=== PATIENT | female | born 1995 | race Caucasian/White ===

== ENCOUNTER 2021-10-05 20:48 | Inpatient (IN) ==
[2021-10-05] MEDS ORDERED: LACTATED RINGERS 250 ML IV ONE (20:59)
[2021-10-05] MEDS ORDERED: TRANEXAMIC ACID 1,000 MG in SODIUM CHLORIDE 0.9% 100 ML IV PRN (20:59)
[2021-10-05] MEDS ORDERED: miSOPROStoL 200 MCG TABLET RECTAL PRN (20:59)
[2021-10-05] MEDS ORDERED: MEPERIDINE 25 MG/1 ML VIAL IV PRN (20:59)
[2021-10-05] MEDS ORDERED: CARBOPROST TROMETHAMINE 250 MCG/ML AMP IM PRN (20:59)
[2021-10-05] MEDS ORDERED: OXYTOCIN/LR 20 UNIT/1,000 ML BAG IV ONE (20:59)
[2021-10-05] MEDS ORDERED: BUTORPHANOL 2 MG/ML VIAL IV PRN (20:59)
[2021-10-05] MEDS ORDERED: ACETAMINOPHEN 325 MG TABLET PO PRN (20:59)
[2021-10-05] MEDS ORDERED: FAMOTIDINE 20 MG TABLET PO PRN (20:59)
[2021-10-05] MEDS ORDERED: BUTORPHANOL 1 MG/ML VIAL IV PRN (20:59)
[2021-10-05] MEDS ORDERED: METHYLERGONOVINE 0.2 MG/1 ML AMP IM PRN (20:59)
[2021-10-05] MEDS ORDERED: MEPERIDINE 50 MG/1 ML VIAL IV PRN (21:06)
[2021-10-05 21:30] LABS: Basophils % 0.3 % (0.0-0.8); Eosinophils # 0.1 10*3/uL (0.0-0.87); Eosinophils % 0.5 % (0.00-10.9); Hematocrit 33.5 VOL% (35.7-47.0); Hemoglobin 11.6 GM/DL (12.0-16.0); Immature Granulocytes % 0.7 %; Immature Granulocytes Absolute 0.08 #; Lymphocytes # 2.3 10*3/uL (1.4-4.0); Lymphocytes % 20.5 % (21.3-54.2); Mean Corpuscular HGB Conc 34.6 GM/DL (32-36); Mean Corpuscular Volume 88.2 FL (87-102); Mean Platelet Volume 9.9 FL (9.6-12.0); Monocytes # 0.8 10*3/uL (0.11-0.8); Monocytes % 7.5 % (1.7-12.7); Neutrophils % 70.5 % (38.7-73.9); Platelet Count 278 T/CUMM (130-400); Red Cell Distribution Width 14.2 % (9.3-17.3); White Blood Count 11.2 T/CUMM (4-12)
[2021-10-05 21:48] LABS: Alanine Aminotransferase 15 U/L (13-56); Albumin 2.9 G/DL (3.4-5.0); Alkaline Phosphatase 145 U/L (45-117); Aspartate Amino Transferase 12 U/L (0-37); Bilirubin,Total < 0.39 MG/DL (0.20-1.00); Blood Urea Nitrogen 6 MG/DL (7-18); Calcium 8.7 MG/DL (8.5-10.1); Carbon Dioxide 22 MMOL/L (21-32); Chloride 107 MMOL/L (98-107); Estimated Glom Filtration Rate 138 ML/MIN; Glucose 106 MG/DL (74-106); Osmolality,Calculated 270.8 MOS/KG (273-304); Potassium 3.7 MMOL/L (3.5-5.1); Sodium 137 MMOL/L (136-145); Total Protein 6.8 G/DL (6.4-8.2)
[2021-10-06] MEDS: LACTATED RINGERS 1,000 ML IV SCH ×3 (00:11→10:02)
[2021-10-06] MEDS: ONDANSETRON 4 MG/2 ML VIAL IV PRN ×2 (07:47→13:14)
[2021-10-06] MEDS ORDERED: diphenhydrAMINE 50 MG/1 ML VIAL IV PRN (07:58)
[2021-10-06] MEDS ORDERED: hydrOXYzine HCL 25 MG/1 ML VIAL IM PRN (07:58)
[2021-10-06] MEDS ORDERED: CITRIC ACID/SODIUM CITRATE 30 ML UDCUP PO ONE (07:58)
[2021-10-06] MEDS ORDERED: ePHEDrine 50 MG/ML VIAL IV PRN (07:58)
[2021-10-06] MEDS ORDERED: NALOXONE 0.4 MG/ML VIAL IV PRN (07:58)
[2021-10-06] MEDS ORDERED: PROMETHAZINE 25 MG/1 ML VIAL IM PRN (07:58)
[2021-10-06] MEDS ORDERED: FAMOTIDINE 20 MG/2 ML VIAL IV ONE (07:58)
[2021-10-06] MEDS ORDERED: fentaNYL 2 MCG/ROPIV 0.2% EPID 100 ML EPIDURAL SCH (08:00)
[2021-10-06] MEDS ORDERED: OXYTOCIN/LR 20 UNIT/1,000 ML BAG IV SCH (08:00)
[2021-10-06 10:56] LABS: Mucus,Urine Occasional /LPF (Occasional); RBC,Urine 1 /HPF (0-4); Squamous Epithelial Cell,Urine Occasional /HPF (0-10)
[2021-10-06 11:15] LABS: Bilirubin,Urine Negative (Negative); Glucose,Urine (UA) Negative (Negative); Ketones,Urine Negative (Negative); Nitrite,Urine Negative (Negative); Protein,Urine Negative (Negative); Urine Appearance Clear (Clear); Urine Color Yellow (Yellow); Urine Specific Gravity 1.015 (1.001-1.035); Urine pH 7.5 (4.5-8.0)
[2021-10-06 11:16] LABS: Blood, Urine Negative (Negative); Urine Urobilinogen 0.2 eU/dL (<2.0)
[2021-10-06] MEDS ORDERED: CARBOPROST TROMETHAMINE 250 MCG/ML AMP IM ONE (12:24)
[2021-10-06] MEDS ORDERED: METHYLERGONOVINE 0.2 MG/1 ML AMP ONE (12:24)
[2021-10-06] MEDS ORDERED: TRANEXAMIC ACID 1,000 MG/10 ML VIAL ONE (12:24)
[2021-10-06] MEDS ORDERED: miSOPROStoL 200 MCG TABLET ONE (12:24)
[2021-10-06 14:34] LABS: Cord Arterial Blood HCO3 19.6 MMOL/L
[2021-10-06 14:36] LABS: Cord Venous Blood HCO3 22.8 MMOL/L; Cord Venous Blood PCO2 39.9 MMHG; Cord Venous Blood PO2 29.1
[2021-10-06] MEDS ORDERED: ONDANSETRON 4 MG/2 ML VIAL IV PRN ×2 (16:46→17:36)
[2021-10-06] MEDS: IBUPROFEN 800 MG TABLET PO PRN (16:56)
[2021-10-06] MEDS ORDERED: LANOLIN 50% CREAM 0.3 OZ TUBE TOP PRN (17:36)
[2021-10-06] MEDS ORDERED: RHO(D) IMMUNE GLOBULIN 300 MCG SYRINGE IM ONE (17:36)
[2021-10-06] MEDS ORDERED: IBUPROFEN 800 MG TABLET PO PRN (17:36)
[2021-10-06] MEDS ORDERED: oxyCODONE/ACETAMINOPHEN 5-325 MG TABLET PO PRN ×2 (17:36)
[2021-10-06] MEDS ORDERED: OXYTOCIN/LR 20 UNIT/1,000 ML BAG IV ONE (17:36)
[2021-10-06] MEDS ORDERED: HYDROCORTISONE 2.5% RECTAL CREAM 30 GM TUBE TOP PRN (17:36)
[2021-10-06] MEDS ORDERED: WITCH HAZEL PADS 100/JAR TOP PRN ×2 (17:36→17:51)
[2021-10-06] MEDS ORDERED: ACETAMINOPHEN 325 MG TABLET PO PRN (17:36)
[2021-10-06] MEDS ORDERED: BENZOCAINE 20%/MENTHOL 0.5% SPRAY 56 GM CAN TOP PRN ×2 (17:36→17:51)
[2021-10-06] MEDS ORDERED: BISACODYL 10 MG SUPP RECTAL PRN (17:36)
[2021-10-06] MEDS ORDERED: DIPH/TET/ACEL PERT BOOSTER VACCINE 0.5 ML VIAL IM ONE (17:36)
[2021-10-06] MEDS ORDERED: MEASLES/MUMPS/RUBELLA VACCINE 0.5 ML VIAL SUBCUT ONE (17:36)
[2021-10-06 20:16] LABS: Hematocrit 28.1 VOL% (35.7-47.0); Hemoglobin 9.6 GM/DL (12.0-16.0)
[2021-10-06] MEDS ORDERED: KETOROLAC 30 MG/1 ML VIAL IV PRN (23:35)
[2021-10-06] MEDS: DOCUSATE SODIUM 100 MG CAPSULE PO SCH (23:45)
[2021-10-07] MEDS: IBUPROFEN 800 MG TABLET PO PRN ×3 (03:50→20:58)
[2021-10-07 06:06] LABS: Basophils % 0.3 % (0.0-0.8); Eosinophils # 0.1 10*3/uL (0.0-0.87); Eosinophils % 0.5 % (0.00-10.9); Hematocrit 28.2 VOL% (35.7-47.0); Hemoglobin 9.5 GM/DL (12.0-16.0); Immature Granulocytes % 0.7 %; Immature Granulocytes Absolute 0.08 #; Lymphocytes # 2.3 10*3/uL (1.4-4.0); Lymphocytes % 19.5 % (21.3-54.2); Mean Corpuscular HGB Conc 33.7 GM/DL (32-36); Mean Platelet Volume 9.7 FL (9.6-12.0); Monocytes # 0.8 10*3/uL (0.11-0.8); Platelet Count 203 T/CUMM (130-400); Red Cell Distribution Width 14.5 % (9.3-17.3); White Blood Count 11.9 T/CUMM (4-12)
[2021-10-07] MEDS: DOCUSATE SODIUM 100 MG CAPSULE PO SCH ×2 (08:08→20:57)
[2021-10-08] MEDS: IBUPROFEN 800 MG TABLET PO PRN (03:40)
[2021-10-08] MEDS ORDERED: ACETAMINOPHEN 500 MG TABLET PO SCH (08:30)
[2021-10-08] MEDS: DOCUSATE SODIUM 100 MG CAPSULE PO SCH (08:35)
[2021-10-08] MEDS ORDERED: MULTIVITAMIN (PRENATAL) TABLET PO SCH (09:00)
[2021-10-08] MEDS ORDERED: IBUPROFEN 800 MG TABLET PO SCH (09:40)
[2021-10-08 14:49] VITALS: BP 100/58
== END 2021-10-08 12:15 | disposition home or self-care (01) | DRG 807 ==
LOC: N.LD 20:48 → N.OB 10-06 16:30
PROVIDERS: ADMIT Specialist; ATTEND Specialist

== ENCOUNTER 2021-10-12 22:46 | Observation (INO) ==
[2021-10-13 00:23] LABS: Basophils # 0.1 10*3/uL (0.0-0.2); Basophils % 0.3 % (0.0-0.8); Eosinophils # 0.2 10*3/uL (0.0-0.87); Hematocrit 30.5 VOL% (35.7-47.0); Hemoglobin 10.2 GM/DL (12.0-16.0); Immature Granulocytes % 0.7 %; Immature Granulocytes Absolute 0.11 #; Lymphocytes # 1.9 10*3/uL (1.4-4.0); Lymphocytes % 12.4 % (21.3-54.2); Mean Corpuscular HGB Conc 33.4 GM/DL (32-36); Mean Corpuscular Volume 90.8 FL (87-102); Mean Platelet Volume 9.4 FL (9.6-12.0); Monocytes # 0.9 10*3/uL (0.11-0.8); Neutrophils % 79.6 % (38.7-73.9); Platelet Count 342 T/CUMM (130-400); Red Blood Count 3.36 MC/CUMM (3.8-5.5); Red Cell Distribution Width 14.2 % (9.3-17.3); White Blood Count 15.4 T/CUMM (4-12)
[2021-10-13 00:28] LABS: Calcium 8.4 MG/DL (8.5-10.1); Osmolality,Calculated 275.5 MOS/KG (273-304); Potassium 3.2 MMOL/L (3.5-5.1)
[2021-10-13 02:03] LABS: INR 0.9; Partial Thromboplastin Time 23.4 SECS (23.8-32.1)
[2021-10-13] MEDS ORDERED: ACETAMINOPHEN 325 MG TABLET PO PRN ×2 (03:38→03:41)
[2021-10-13] MEDS ORDERED: IBUPROFEN 800 MG TABLET PO PRN (03:38)
[2021-10-13] MEDS ORDERED: MAGNESIUM HYDROXIDE SUSP 30 ML UDCUP PO PRN (03:38)
[2021-10-13] MEDS ORDERED: ONDANSETRON 4 MG/2 ML VIAL IV PRN ×3 (03:38→10:33)
[2021-10-13] MEDS ORDERED: BISACODYL 10 MG SUPP RECTAL PRN (03:38)
[2021-10-13] MEDS ORDERED: MORPHINE 2 MG/1 ML SYRINGE IV PRN (03:38)
[2021-10-13] MEDS ORDERED: ACETAMINOPHEN 325 MG TABLET ONE (03:42)
[2021-10-13] MEDS ORDERED: LACTATED RINGERS 1,000 ML IV SCH (04:00)
[2021-10-13] MEDS: POTASSIUM CHLORIDE RIDER 10 MEQ/100 ML PREMIX IV PRN ×4 (05:09→11:15)
[2021-10-13] MEDS ORDERED: METHYLERGONOVINE 0.2 MG/1 ML AMP IM SCH (06:00)
[2021-10-13 06:49] LABS: Basophils % 0.2 % (0.0-0.8); Eosinophils % 0.3 % (0.00-10.9); Hematocrit 27.1 VOL% (35.7-47.0); Immature Granulocytes % 0.5 %; Immature Granulocytes Absolute 0.06 #; Lymphocytes # 2.1 10*3/uL (1.4-4.0); Lymphocytes % 16.1 % (21.3-54.2); Mean Corpuscular HGB Conc 33.2 GM/DL (32-36); Mean Corpuscular Volume 90.6 FL (87-102); Mean Platelet Volume 9.6 FL (9.6-12.0); Monocytes # 0.5 10*3/uL (0.11-0.8); Monocytes % 3.5 % (1.7-12.7); Neutrophils % 79.4 % (38.7-73.9); Platelet Count 315 T/CUMM (130-400); Red Blood Count 2.99 MC/CUMM (3.8-5.5); Red Cell Distribution Width 14.1 % (9.3-17.3); White Blood Count 13.1 T/CUMM (4-12)
[2021-10-13] MEDS ORDERED: METHYLERGONOVINE 0.2 MG/1 ML AMP IM PRN (06:55)
[2021-10-13] MEDS ORDERED: DOCUSATE SODIUM 100 MG CAPSULE PO SCH (09:00)
[2021-10-13] MEDS ORDERED: MIDAZOLAM 2 MG/2 ML VIAL ONE (09:04)
[2021-10-13] MEDS ORDERED: fentaNYL 100 MCG/2 ML VIAL ONE (09:04)
[2021-10-13] MEDS ORDERED: LIDOCAINE 2% 5 ML VIAL ONE (09:04)
[2021-10-13] MEDS ORDERED: ONDANSETRON 4 MG/2 ML VIAL ONE (09:04)
[2021-10-13] MEDS ORDERED: propofoL 200 MG/20 ML VIAL IV ONE (09:04)
[2021-10-13] MEDS ORDERED: FAMOTIDINE 20 MG/2 ML VIAL IV ONE (09:31)
[2021-10-13] MEDS ORDERED: OXYTOCIN/LR 20 UNIT/1,000 ML BAG IV ONE ×2 (10:04→10:29)
[2021-10-13] MEDS ORDERED: CLINDAMYCIN INJ 600 MG/50 ML PREMIX IV ONE (10:08)
[2021-10-13] MEDS ORDERED: LEVOFLOXACIN INJ 500 MG/100 ML PREMIX IV ONE (10:08)
[2021-10-13] MEDS ORDERED: SEVOFLURANE 1 UNIT/15 MINUTE INH ONE (10:21)
[2021-10-13] MEDS ORDERED: MEPERIDINE 25 MG/1 ML VIAL ONE (10:28)
[2021-10-13] MEDS ORDERED: MEPERIDINE 50 MG/1 ML VIAL IM PRN (10:29)
[2021-10-13] MEDS ORDERED: PROMETHAZINE INJ 25 MG in SODIUM CHLORIDE 0.9% 50 ML IV PRN (10:33)
[2021-10-13] MEDS ORDERED: MEPERIDINE 50 MG/1 ML VIAL IV PRN (10:33)
[2021-10-13] MEDS ORDERED: HYDROmorphone 1 MG/1 ML SYRINGE IV PRN (10:33)
[2021-10-13] MEDS ORDERED: PROMETHAZINE 25 MG/1 ML VIAL ONE (10:53)
[2021-10-13 15:47] VITALS: BP 103/62
== END 2021-10-13 18:00 | disposition home or self-care (01) ==
LOC: N.ED 22:46 → N.EDINP 22:46 → N.OB 10-13 03:10
PROVIDERS: ADMIT Specialist; ATTEND Specialist